=== PATIENT | female | born 1990 ===

== ENCOUNTER 2016-10-31 19:05 | Emergency (ER) | payer SELFPAY ==
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
== END 2016-10-31 20:44 | disposition home or self-care (01) ==
LOC: ED 19:05
DX: S06.0X0A Concussion without loss of consciousness, initial encounter (principal); S00.83XA Contusion of other part of head, initial encounter; I10 Essential (primary) hypertension; E78.00 Pure hypercholesterolemia, unspecified; F17.210 Nicotine dependence, cigarettes, uncomplicated; Y04.2XXA Assault by strike against or bumped into by another person, initial encounter